=== PATIENT | female | born 1975 | race Hispanic/Latino ===

== ENCOUNTER 2018-02-01 23:47 | Inpatient (IN) | payer MEDICAID ==
[2018-02-01 23:56] VITALS: O2SAT 99
--- NOTE | 2018-02-02 00:01 | ED PDOC ---
Psych Transfer Clearance - Clearance Statement Clearance Statement: Lab results and transfer papers reviewed on previous shift by Dr Hugo. On arrival to ED vital signs are stable. Patient clinically stable for psychiatric admission.
[2018-02-02] MEDS ORDERED: Alum-Mag Hydrox-Simethicone Susp (30 mL) PO PRN (00:28)
[2018-02-02] MEDS ORDERED: Magnesium Hydroxide Susp 30 ml UD PO PRN (00:28)
[2018-02-02] MEDS ORDERED: DiphenhydrAMINE 50 mg/ml Inj IM PRN (00:28)
--- NOTE | 2018-02-02 00:41 | PCM.BM ---
Treatment Plan Problems - Problems identified on initial assessmt Self Harm Date Initiated: 02/02/18 Time Initiated: 00:40 Assessment reference: NA Status: Active Suicial Ideation Date Initiated: 02/02/18 Time Initiated: 00:40 Assessment reference: NA Status: Active Ineffective Coping Date Initiated: 02/02/18 Time Initiated: 00:40 Assessment reference: NA Status: Active Hopelessness/Helplessness Date Initiated: 02/02/18 Time Initiated: 00:40 Assessment reference: NA Status: Active Treatment assets and liabiliti Patient Assests: cooperative, ADL independent, negotiates basic needs Patient Liabilities: financial problems, poor support system, substance abuse - Milieu Protocol Maintain good personal hygiene: every shift Encourage regular showers, every shift Remind patient to perform daily oral care, every shift Assist patient to perform ADL's Maintain personal safety: daily Educate patient to report safety concerns to staff, daily Monitor environment for contraband/sharps Medication safety: Monitor for expected outcome, potential side effects: daily, Assess barriers to learning: daily, Assess readiness for medication education: daily
[2018-02-02 06:45] LABS: BASO # 0.1 K/uL (0.0-0.2); BASO % 0.7 % (0.0-2.0); EOS # 0.1 K/uL (0.0-0.7); EOS % 1.3 % (0.0-4.0); HEMOGLOBIN 12.4 g/dL (12.0-16.0); LYMPH % 24.1 % (20.0-40.0); MEAN CELL VOLUME 80.9 fl (81.0-99.0); MEAN CORPUSCULAR HEMOGLOBIN 26.5 pg (27.0-31.0); MEAN CORPUSCULAR HGB CONC 32.8 g/dL (33.0-37.0); MEAN PLATELET VOLUME 7.9 fl (7.2-11.7); MONO # 0.3 K/uL (0.0-0.8); NEUT # 5.9 K/uL (1.8-7.0); NEUT % 69.9 % (50.0-75.0); RBC 4.66 Mil/uL (3.80-5.20); RED CELL DISTRIBUTION WIDTH 15.8 % (11.5-14.5); WHITE BLOOD COUNT 8.5 K/uL (4.8-10.8)
[2018-02-02 06:56] LABS: ALB/GLOB RATIO 0.7 (1.0-2.1); ALBUMIN 3.6 g/dL (3.5-5.0); ALT/SGPT 32 U/L (9-52); AST/SGOT 46 U/L (14-36); BLOOD UREA NITROGEN 4 mg/dl (7-17); CALCIUM 9.2 mg/dL (8.4-10.2); GFR NON-AFRICAN AMERICAN > 60; HDL CHOLESTEROL 47 MG/DL (30-70)
[2018-02-02 07:06] LABS: LDL CHOLESTEROL 80 mg/dL (0-129)
[2018-02-02 07:08] LABS: T4 10.6 ug/dl (5.5-11.0)
[2018-02-02] MEDS: Multivitamin With Minerals Tab PO SCH (09:10)
--- NOTE | 2018-02-02 14:44 | CP.PCM.CON ---
History of Present Illness - History of Present Illness History of Present Illness: medical clearance for psychiatric illness cc:depression, drug abuse HPI: 42ys old female with no PMH, and psychiatric diagnoses of opiate use, cocaine use and depression. Denies any physical complaints, no cp, no sob, no fever, no chills, no diarrhea, no constipation, no dysuria. PMH: none Past surgical History: 3 c sections FH: none for major diseases SH: smokes 1ppd heroin daily cocaine daily socially Meds:reviewed Allergies: nkda Review of Systems - Review of Systems All systems: reviewed and no additional remarkable complaints except Review of Systems: in hpi Past Patient History - Past Social History Smoking Status: Heavy Smoker > 10 Cigarettes Daily Alcohol: Social Drugs: Cocaine, Opiates - CARDIAC Hx Cardiac Disorders: No Hx Hypertension: No - PULMONARY Hx Respiratory Disorders: No Hx Tuberculosis: No - NEUROLOGICAL Hx Neurological Disorder: No HX Cerebrovascular Accident: No Hx Seizures: No - HEENT Hx HEENT Problems: No - RENAL Hx Chronic Kidney Disease: No - ENDOCRINE/METABOLIC Hx Endocrine Disorders: No - HEMATOLOGICAL/ONCOLOGICAL Hx Cancer: No Hx Human Immunodeficiency Virus (HIV): No - INTEGUMENTARY Hx Dermatological Problems: No - MUSCULOSKELETAL/RHEUMATOLOGICAL Hx Musculoskeletal Disorders: No - GASTROINTESTINAL Hx Gastrointestinal Disorders: No - GENITOURINARY/GYNECOLOGICAL Hx Sexually Transmitted Disorders: No Hx Urinary Tract Infection: Yes (as per transfer report) Other/Comment: hx. of ovarian cyst - PSYCHIATRIC Hx Substance Use: No - SURGICAL HISTORY Hx Surgeries: Yes Hx Section: Yes (X3) Other/Comment: OVARIAN CYST REMOVAL - ANESTHESIA Hx Anesthesia: Yes Meds Allergies/Adverse Reactions: Allergies Allergy/AdvReac Type Severity Reaction Status Date / Time No Known Allergies Allergy Verified 02/01/18 14:14 - Medications Medications: Current Medications Acetaminophen (Tylenol 325mg Tab) 650 mg PO Q4 PRN PRN Reason: Pain, moderate (4-7) Al Hydrox/Mg Hydrox/Simethicone (Maalox Plus 30 Ml) 30 ml PO Q4 PRN PRN Reason: Dyspepsia Clonidine HCl (Catapres) 0.1 mg PO Q8 GIOVANNY Stop: 02/05/18 01:01 Last Admin: 02/02/18 09:08 Dose: 0.1 mg Cyclobenzaprine HCl (Flexeril) 5 mg PO Q8 PRN PRN Reason: Muscle spasm Diphenhydramine HCl (Benadryl) 50 mg IM Q6 PRN PRN Reason: Extrapyramidal S/S Unable PO Diphenhydramine HCl (Benadryl) 50 mg PO Q6 PRN PRN Reason: Extrapyramidal Symptoms Diphenhydramine HCl (Benadryl) 50 mg PO HS PRN PRN Reason: Sleep Gabapentin (Neurontin) 100 mg PO TID GIOVANNY Haloperidol (Haldol) 5 mg PO Q4 PRN PRN Reason: Agitation Haloperidol Lactate (Haldol) 5 mg IM Q4 PRN PRN Reason: Agitation, Unable to Take PO Ibuprofen (Motrin Tab) 800 mg PO Q6 PRN PRN Reason: Pain, Mild (1-3) Stop: 02/05/18 00:36 Last Admin: 02/02/18 09:07 Dose: 800 mg Loperamide HCl (Imodium) 2 mg PO Q4 PRN PRN Reason: After Loose Bowel Movement Last Admin: 02/02/18 09:08 Dose: 2 mg Lorazepam (Ativan) 1 mg IM Q8 PRN PRN Reason: Anxiety/Agitation,Unable PO Lorazepam (Ativan) 1 mg PO Q8 PRN PRN Reason: Anxiety/Agitation Last Admin: 02/02/18 11:43 Dose: 1 mg Magnesium Hydroxide (Milk Of Magnesia) 30 ml PO HS PRN PRN Reason: Constipation Multivitamins/Minerals (Therapeutic-M Tab) 1 tab PO DAILY [facility] Last Admin: 02/02/18 09:10 Dose: Not Given Trazodone HCl (Desyrel) 100 mg PO HS [facility] Physical Exam - Constitutional Appears: No Acute Distress Additional comments: somnolent easily awakened with verbal stimuli - Head Exam Head Exam: ATRAUMATIC, NORMAL INSPECTION - ENT Exam ENT Exam: Mucous Membranes Dry - Respiratory Exam Respiratory Exam: Clear to Auscultation Bilateral, NORMAL BREATHING PATTERN. absent: Rales, Rhonchi, Wheezes - Cardiovascular Exam Cardiovascular Exam: REGULAR RHYTHM, +S1, +S2 - GI/Abdominal Exam GI & Abdominal Exam: Normal Bowel Sounds, Soft. absent: Tenderness - Extremities Exam Extremities exam: Positive for: normal inspection - Back Exam Back exam: NORMAL INSPECTION - Neurological Exam Neurological exam: Alert, Oriented x3 - Psychiatric Exam Psychiatric exam: Anxious Results - Vital Signs Recent Vital Signs: Last Vital Signs Temp 97.3 F L 02/02/18 09:22 Pulse 76 02/02/18 09:22 Resp 20 02/02/18 09:22 BP 136/89 02/02/18 09:22 Pulse Ox 99 02/01/18 23:50 - Labs Result Diagrams: 02/02/18 06:30 02/02/18 06:30 Labs: Laboratory Results - last 24 hr 02/02/18 02/02/18 06:30 06:30 WBC 8.5 RBC 4.66 Hgb 12.4 Hct 37.7 MCV 80.9 L MCH 26.5 L MCHC 32.8 L RDW 15.8 H Plt Count 266 MPV 7.9 Neut % (Auto) 69.9 Lymph % (Auto) 24.1 [place] % (Auto) 4.0 Eos % (Auto) 1.3 Baso % (Auto) 0.7 Neut # (Auto) 5.9 Lymph # (Auto) 2.0 [place] # (Auto) 0.3 Eos # (Auto) 0.1 Baso # (Auto) 0.1 Sodium 138 Potassium 3.9 Chloride 105 Carbon Dioxide 26 Anion Gap 11 BUN 4 L Creatinine 0.5 L Est GFR ( Amer) > 60 Est GFR (Non-Af Amer) > 60 Random Glucose 106 H Calcium 9.2 Total Bilirubin 0.6 AST 46 H ALT 32 Alkaline Phosphatase 121 Total Protein 8.6 H Albumin 3.6 Globulin 5.0 H Albumin/Globulin Ratio 0.7 L Triglycerides 76 Cholesterol 156 LDL Cholesterol Direct 80 HDL Cholesterol 47 Thyroxine (T4) 10.6 TSH 3rd Generation 0.21 L Assessment & Plan - Assessment and Plan (Free Text) Assessment: 42 yo wf with no pmh here with depression and substance abuse treatment. Continue treatment with psychiatry.
--- NOTE | 2018-02-02 14:46 | PCM.PSYCH ---
Initial Psychiatric Evaluation - Initial Psychiatric Evaluation Type of Admission: Voluntary Legal Status: Capacity Chief Complaint (in patient's own words): I am having a hard time Patient's Reaction to Hospitalization: pt requested help History of Present Illness and Precipitating Events: pt is 42ys old female with previous psychiatric diagnosis opiate use, cocaine use and depression, pt presented to the ER in [facility] with suicidal ideation , pt has been feeling increasingly depressed in the context of using heroin and cocaine daily reported poor sleep , poor appetite , anhedonia, low energy,passive suicidal ideation without active plan to hurt self on the unit denied homicidal ideation, denied perceptual disturbances Current Medications: Active Medications Generic Name Dose Route Start Last Admin Trade Name Freq PRN Reason Stop Dose Admin Acetaminophen 650 mg 02/02/18 00:28 Tylenol 325mg Tab PO Q4 PRN Pain, moderate (4-7) Al Hydrox/Mg Hydrox/Simethicone 30 ml 02/02/18 00:28 Maalox Plus 30 Ml PO Q4 PRN Dyspepsia Clonidine HCl 0.1 mg 02/02/18 01:00 02/02/18 09:08 Catapres PO 02/05/18 01:01 0.1 mg Q8 GIOVANNY Administration Cyclobenzaprine HCl 5 mg 02/02/18 11:07 Flexeril PO Q8 PRN Muscle spasm Diphenhydramine HCl 50 mg 02/02/18 00:28 Benadryl IM Q6 PRN Extrapyramidal S/S Unable PO Diphenhydramine HCl 50 mg 02/02/18 00:28 Benadryl PO Q6 PRN Extrapyramidal Symptoms Diphenhydramine HCl 50 mg 02/02/18 06:21 Benadryl PO HS PRN Sleep Gabapentin 100 mg 02/02/18 13:00 Neurontin PO TID GIOVANNY Haloperidol 5 mg 02/02/18 00:28 Haldol PO Q4 PRN Agitation Haloperidol Lactate 5 mg 02/02/18 00:28 Haldol IM Q4 PRN Agitation, Unable to Take PO Ibuprofen 800 mg 02/02/18 00:36 02/02/18 09:07 Motrin Tab PO 02/05/18 00:36 800 mg Q6 PRN Administration Pain, Mild (1-3) Loperamide HCl 2 mg 02/02/18 00:36 02/02/18 09:08 Imodium PO 2 mg Q4 PRN Administration After Loose Bowel Movement Lorazepam 1 mg 02/02/18 00:28 Ativan IM Q8 PRN Anxiety/Agitation,Unable PO Lorazepam 1 mg 02/02/18 00:28 02/02/18 11:43 Ativan PO 1 mg Q8 PRN Administration Anxiety/Agitation Magnesium Hydroxide 30 ml 02/02/18 00:28 Milk Of Magnesia PO HS PRN Constipation Multivitamins/Minerals 1 tab 02/02/18 09:00 02/02/18 09:10 Therapeutic-M Tab PO Not Given DAILY GIOVANNY Trazodone HCl 100 mg 02/02/18 22:00 Desyrel PO HS GIOVANNY Past Psychiatric History - Past Psychiatric History Explanation of prior treatment: pt denied any previous psychiatric hospitalizations History of ETOH/Drug Use: hx of opiate and cocaine use disorder Pertinent Medical Hx (Current Medical&Sleep Prob, Allergies): Allergies Allergy/AdvReac Type Severity Reaction Status Date / Time No Known Allergies Allergy Verified 02/01/18 14:14 No Known Home Med 02/01/18 Mental Status Examination - Personal Presentation Personal Presentation: Looks older than stated age - Affect Affect: Constricted, Depressed - Motor Activity Motor Activity: Psychomotor Agitation - Reliability in Providing Information Reliability in Providing Information: Poor, due to altered mood - Speech Speech: Relevant - Mood Mood: Depressed, Anxious - Formal Thought Process Formal Thought Process: Circumstantial - Hallucinations/Delusions Additional comments: pt denied any current perceptual disturbances, non elicited - Obsessions/Compulsions Obsessions: No Compulsions: No - Cognitive Functions Orientation: Person, Place Sensorium: Alert Attention/Concentration: Easily distracted Abstract Thinking: Petros Judgement: Imparied, as evidence by: Poor judgement, Imparied, as evidence by: Lack of insight into illness - Risk Risk: Suicidal, Withdrawal, Diminished functioning - Strength & Assets Inventory Strength & Assets Inventory: Family support - Limitations Additional comments: poor insight DSM 5 DX - DSM 5 DSM 5 Diagnosis: substance induced mood disorder 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
[2018-02-02] MEDS ORDERED: Trimethobenzamide 200 mg/2 mL Inj IM ONE (23:17)
[2018-02-03] MEDS: Multivitamin With Minerals Tab PO SCH (09:12)
[2018-02-03 09:14] VITALS: RESP 18
--- NOTE | 2018-02-03 16:58 | PCM.PYCHPN ---
Psychiatric Progress Note - Psychiatric Progress Note Patient seen today, length of contact: pt evaluated discussed with team chart reviewed Patient Chief Complaint: I am tired and depressed Problems Identified/Issues Discussed: pt on evaluation, sen in bed, low energy, poor motivation, anhedonia, depressed mood and affect, limited insight into illness requesting to be discharged motivational therapy provided , discussed starting zoloft pt denied any current suicidal or homicidal ideation denied perceptual disturbances Medical Problems: pt denied any previous psychiatric hospitalizations DSM 5 Symptoms Update: substance induced mood disorder depression Medication Change: Yes (start zoloft ) Medical Record Reviewed: Yes Mental Status Examination - Cognitive Function Orientation: Person, Place Attention: WNL Concentration: WNL Association: WNL Fund of Knowledge: Poor Decription of patient's judgement and insights: partial insight poor judgment - Mood Mood: Depressed, Anxious - Affect Affect: Constricted, Depressed - Speech Speech: Soft - Formal Thought Process Formal Thought Process: Circumstantial Psychotic Thoughts and Behaviors: pt denied perceptual disturbances - Suicidal Ideation Suicidal Ideation: No - Homicidal Ideation Homicidal Ideation: No Goal/Treatment Plan - Goal/Treatment Plan Need for Continued Stay: Severe depression anxiety, Discharge may exacerbated symptoms, Failed transitioning Progress Toward Problem(s) and Goals/Treatment Plan: clonidine protocol, monitor pt for symptoms and signs of opiate withdrawal neurontin 100mg tid for anxiety zoloft 25mg for depression Motivational group and supportive therapy referral to maintenance treatment on discharge internal medicine consult
[2018-02-04 09:33] VITALS: BP 142/81; PULSE 68
[2018-02-04 09:34] VITALS: TEMP 97.3
--- NOTE | 2018-02-04 15:12 | PCM.PYCHDC ---
Mental Status Examination - Mental Status Examination Orientation: Person, Place, Situation Memory: Intact Mood: Neutral Affect: Broad Speech: Appropriate Attention: WNL Concentration: WNL Association: WNL Fund of Knowledge: WNL Formal Thought Process: No Impairment Description of patient's judgement and insight: partial insight poor judgment Psychotic Thoughts and Behaviors: pt denied perceptual disturbances Suicidal Ideation: No Current Homicidal Ideation?: No Discharge Summary - Discharge Note Reason for Hospitalization: pt is 42ys old female with previous psychiatric diagnosis opiate use, cocaine use and depression, pt presented to the ER in [facility] [place] with suicidal ideation , pt has been feeling increasingly depressed in the context of using heroin and cocaine daily reported poor sleep , poor appetite , anhedonia, low energy,passive suicidal ideation without active plan to hurt self on the unit denied homicidal ideation, denied perceptual disturbances Consultations:: List each consultation separately and include: 1. Reason for request. 2. Findings. 3. Follow-up Summary of Hospital Course include:: 1. Description of specific treatment plan utilized for patients during their course of treatmen. 2. Summarize the time- course for resolution of acute symptoms and/or regressed behaviors. 3. Describe issues identified and worked on during hospitalization. 4. Describe medication utilized. 5. Describe medical problems identified and treated. 6. Reassessment of suicide risk Summary of Hospital Course: pt on admission was started on clonidine protocol, monitored for symptoms and signs of opiate withdrawal pt was also started on neurontin and zoloft pt signed 48 hour notice requesting to be discharged pt was advised about risk of relapse and possible overdose motivational therapy provided and advised referral to maintenance therapy, pt declined and requested to sign against medical advise pt on discharge deniied suicidal or homicidal ideation denied perceptual disturbances, on discharge pt was not danger to self or others - Final Diagnosis (DSM 5) Condition upon Discharge: GOOD DSM 5: substance induced mood disorder with depressive features opiate use disorder Disposition: HOME/ ROUTINE Follow-up Treatment Plan: clonidine protocol, monitor pt for symptoms and signs of opiate withdrawal neurontin 100mg tid for anxiety zoloft 25mg for depression Motivational group and supportive therapy referral to maintenance treatment on discharge internal medicine consult - Antipsychotic Medications Pt discharged on 2 or more routine antipsychotic medications: No
== END 2018-02-04 11:18 | disposition home or self-care (01) | DRG 895 ==
LOC: H.ER 23:47 → H.PSYCH 23:59
PROVIDERS: ADMIT Psychiatry & Neurology Psychiatry; ATTEND Psychiatry & Neurology Psychiatry
PROC: HZ52ZZZ Individual Psychotherapy for Substance Abuse Treatment, Cognitive-Behavioral (ICD-10-PCS; principal; 2018-02-01)
PROC: GZHZZZZ Group Psychotherapy (ICD-10-PCS; 2018-02-01)
PROC: GZ58ZZZ Individual Psychotherapy, Cognitive-Behavioral (ICD-10-PCS; 2018-02-01)
DX: F14.14 Cocaine abuse with cocaine-induced mood disorder (principal); F11.14 Opioid abuse with opioid-induced mood disorder; F32.9 Major depressive disorder, single episode, unspecified; F17.210 Nicotine dependence, cigarettes, uncomplicated; Z87.440 Personal history of urinary (tract) infections